=== PATIENT | female | born 1995 | race Caucasian/White ===

== ENCOUNTER 2024-04-09 11:00 | Inpatient (IN) | payer BC ==
[2024-04-09] MEDS ORDERED: Lidocaine 1% 50 ML MDV INJECT PRN (11:09)
[2024-04-09] MEDS ORDERED: Nalbuphine 10 MG/1 ML Vial IVPUSH PRN (11:09)
[2024-04-09] MEDS ORDERED: Ondansetron 4 MG/2 ML SDV IVPUSH PRN ×2 (11:09→21:22)
[2024-04-09] MEDS ORDERED: Sodium Chloride 0.9% 10 ML Syringe FLUSH PRN (11:09)
[2024-04-09] MEDS ORDERED: Oxytocin/0.9 % Sodium Chloride 30 UNIT/500 ML BAG IV SCH (11:15)
[2024-04-09 11:28] LABS: BASOPHILS PERCENT AUTO 0.3 % (0.0-1.0); EOSINOPHILS ABSOLUTE AUTO 0.1 K/mm3 (0.0-0.4); EOSINOPHILS PERCENT AUTO 1.4 % (0.0-6.0); HEMATOCRIT 38.3 % (37.0-47.0); IMMATURE GRAN ABSOLUTE AUTO 0.05 K/mm3 (0.00-0.05); IMMATURE GRAN PERCENT AUTO 0.5 % (0.0-0.4); LYMPHOCYTES PERCENT AUTO 21.3 % (24.0-44.0); MEAN CORPUSCULAR HEMOGLOBIN 31.4 pg (28.0-32.0); MEAN CORPUSCULAR HGB CONC 35.5 g/dl (32.0-36.0); MEAN CORPUSCULAR VOLUME 88.5 fl (83.0-99.0); MEAN PLATELET VOLUME 9.4 fl (9.4-12.3); MONOCYTES ABSOLUTE AUTO 0.5 K/mm3 (0.0-0.8); MONOCYTES PERCENT AUTO 5.9 % (0.0-8.0); NEUTROPHILS ABSOLUTE AUTO 6.5 K/mm3 (1.8-7.7); NEUTROPHILS PERCENT AUTO 70.6 % (41.0-71.0); PLATELET COUNT,PLT 295 K/mm3 (150-400); RED BLOOD CELL COUNT 4.33 M/mm3 (4.10-5.30); WHITE BLOOD CELL COUNT,WBC 9.19 K/mm3 (3.9-11.3)
[2024-04-09 11:30] LABS: HEMOGLOBIN 13.6 gm/dl (12.0-16.0)
[2024-04-09] MEDS: Lactated Ringers 1,000 ML IV SCH (12:28)
[2024-04-09] MEDS: Oxytocin/0.9 % Sodium Chloride 30 UNIT/500 ML BAG IV SCH (12:28)
[2024-04-09 12:39] LABS: CREATININE 0.6 mg/dL (0.55-1.02); EST CRCL DRUG DOSING (CG) 117.54 mL/min
[2024-04-09 13:04] LABS: CREATININE,URINE RAND 38.8 mg/dL (30.0-125.0); PROTEIN CREATININE RATIO,URINE 190.7 mg/g (0-149); PROTEIN,URINE RANDOM 7.4 mg/dL (0.0-11.8)
[2024-04-09] MEDS ORDERED: diphenhydrAMINE 50 MG/ML SDV IVPUSH PRN ×2 (15:31→21:22)
[2024-04-09] MEDS ORDERED: ePHEDrine 50 MG/ML SDV IVPUSH PRN ×2 (15:31→23:07)
[2024-04-09] MEDS: Bupivacaine/fentaNYL/NS 100 ML Bag EPIDUR PRN (15:39)
[2024-04-09] MEDS: fentaNYL 100 MCG/2 ML SDV EPIDUR PRN (15:40)
[2024-04-09] MEDS: Calcium Carbonate 500 MG Tab.Chew PO PRN (18:45)
[2024-04-09] MEDS ORDERED: fentaNYL 100 MCG/2 ML SDV ONE (20:01)
[2024-04-09] MEDS ORDERED: Ondansetron 4 MG/2 ML SDV ONE (20:01)
[2024-04-09] MEDS ORDERED: Lidocaine 2% with EPINEPHrine 1:200,000 20 ML SDV ONE (20:01)
[2024-04-09] MEDS ORDERED: Phenylephrine 1% 10 MG/ML SDV ONE (20:03)
[2024-04-09] MEDS: Citric Acid/Sodium Citrate Solution 30 ML Cup PO ONE (20:06)
[2024-04-09] MEDS: Azithromycin 500 MG in Sodium Chloride 0.9% 250 ML IV ONE (20:06)
[2024-04-09] MEDS: Metoclopramide 10 MG/2 ML SDV IVPUSH ONE (20:07)
[2024-04-09] MEDS ORDERED: ceFAZolin 2 GM Vial ONE (20:26)
[2024-04-09] MEDS ORDERED: Ketorolac 30 MG/ML SDV ONE (20:38)
[2024-04-09] MEDS ORDERED: Oxytocin 10 Units/1 ML SDV ONE (20:40)
[2024-04-09] MEDS ORDERED: Methylergonovine 0.2 MG/1 ML Amp ONE (20:44)
[2024-04-09] MEDS ORDERED: Morphine PF 10 MG/10 ML SDV ONE (20:59)
[2024-04-09] MEDS: Misoprostol 200 MCG Tab ONE (21:20)
[2024-04-09] MEDS ORDERED: Meperidine 50 MG/ML Vial IVPUSH PRN (21:22)
[2024-04-09] MEDS ORDERED: fentaNYL 100 MCG/2 ML SDV IVPUSH PRN (21:22)
[2024-04-09] MEDS ORDERED: Ondansetron 4 MG/2 ML SDV IV PRN (23:07)
[2024-04-09] MEDS ORDERED: Naloxone 0.4 MG/ML SDV IVPUSH PRN (23:07)
[2024-04-09] MEDS ORDERED: Docusate Sodium 100 MG Cap PO PRN (23:07)
[2024-04-09] MEDS ORDERED: Acetaminophen/oxyCODONE 325-5 MG Tab PO PRN (23:07)
[2024-04-09] MEDS: Dextrose 5%-Lactated Ringers 1,000 ML IV SCH (23:22)
[2024-04-10] MEDS: Ketorolac 30 MG/ML SDV IVPUSH SCH (02:58)
[2024-04-10] MEDS: Lactated Ringers 500 ML IV ONE (07:15)
[2024-04-10 11:20] LABS: HEMATOCRIT 29.5 % (37.0-47.0); HEMOGLOBIN 10.4 gm/dl (12.0-16.0); MEAN CORPUSCULAR HEMOGLOBIN 31.4 pg (28.0-32.0); MEAN CORPUSCULAR HGB CONC 35.3 g/dl (32.0-36.0); MEAN CORPUSCULAR VOLUME 89.1 fl (83.0-99.0); MEAN PLATELET VOLUME 9.3 fl (9.4-12.3); PLATELET COUNT,PLT 246 K/mm3 (150-400); RED BLOOD CELL COUNT 3.31 M/mm3 (4.10-5.30); WHITE BLOOD CELL COUNT,WBC 11.51 K/mm3 (3.9-11.3)
[2024-04-10] MEDS: ceFAZolin 2 GM in Sodium Chloride 0.9% 50 ML IV ONE (11:30)
[2024-04-10] MEDS: Sodium Chloride 0.9% 10 ML Syringe FLUSH SCH (11:30)
[2024-04-10 12:24] LABS: T4 FREE 0.65 ng/dL (0.76-1.46); TSH 2.334 uIU/mL (0.358-3.74)
[2024-04-10 13:01] LABS: A/G RATIO 0.7 (1-2); ALBUMIN 2.1 g/dl (3.4-5.0); ANION GAP 12.3 (5-15); BILIRUBIN TOTAL 0.4 mg/dL (0.2-1.0); CALCIUM 8.9 mg/dL (8.5-10.1); CREATININE 0.6 mg/dL (0.55-1.02); EST CRCL DRUG DOSING (CG) 117.54 mL/min; POTASSIUM,K 4.3 mEq/L (3.5-5.1); PROTEIN TOTAL,TP 5.3 g/dl (6.4-8.2)
[2024-04-10] MEDS: Iopamidol 612 MG/ML 100 ML Bottle IVPUSH ONE (13:39)
[2024-04-10] MEDS: Sodium Chloride 0.9% 100 ML IV SCH (13:39)
[2024-04-10] MEDS: Sodium Chloride 0.9% 10 ML Syringe FLUSH ONE (13:39)
[2024-04-10] MEDS: Iopamidol 612 MG/ML 30 ML SDV IVPUSH ONE (13:40)
[2024-04-10] MEDS: Gentamicin 500 MG in Sodium Chloride 0.9% 100 ML IV STA ×2 (14:06→14:07)
[2024-04-10] MEDS: Clindamycin Phosphate in D5W 900 MG in Premix Bag 1 BAG IV SCH ×2 (15:14→15:25)
[2024-04-10] MEDS: Sodium Chloride 0.9% 500 ML IV ONE (15:48)
[2024-04-10] MEDS: Ibuprofen 600 MG Tab PO SCH (21:24)
[2024-04-11] MEDS: Acetaminophen/oxyCODONE 325-5 MG Tab PO PRN (00:36)
[2024-04-11 06:08] LABS: HEMATOCRIT 28.8 % (37.0-47.0); HEMOGLOBIN 10.1 gm/dl (12.0-16.0); MEAN CORPUSCULAR HEMOGLOBIN 31.3 pg (28.0-32.0); MEAN CORPUSCULAR HGB CONC 35.1 g/dl (32.0-36.0); MEAN CORPUSCULAR VOLUME 89.2 fl (83.0-99.0); MEAN PLATELET VOLUME 9.2 fl (9.4-12.3); PLATELET COUNT,PLT 231 K/mm3 (150-400); RED BLOOD CELL COUNT 3.23 M/mm3 (4.10-5.30); WHITE BLOOD CELL COUNT,WBC 11.47 K/mm3 (3.9-11.3)
[2024-04-11] MEDS: Gentamicin 500 MG in Sodium Chloride 0.9% 100 ML IV ONE (13:56)
[2024-04-11] MEDS: Magnesium Hydroxide 400 MG/5 ML Susp 30 ML Cup PO ONE (21:36)
[2024-04-12] MEDS: Ibuprofen 600 MG Tab PO SCH (10:46)
== END 2024-04-12 11:40 | disposition home or self-care (01) | DRG 540 ==
LOC: JD.OB 11:00 → OBSVTOIN 20:40 → JD.OB 20:40
PROVIDERS: ADMIT Obstetrics & Gynecology; ATTEND Obstetrics & Gynecology
PROC: 10D00Z1 Extraction of Products of Conception, Low, Open Approach (ICD-10-PCS; principal; 2024-04-09 20:05)
DX: O41.03X0 Oligohydramnios, third trimester, not applicable or unspecified (principal); Z3A.41 41 weeks gestation of pregnancy; Z37.0 Single live birth; O48.0 Post-term pregnancy; O99.214 Obesity complicating childbirth; O62.2 Other uterine inertia; O75.3 Other infection during labor
CPT/HCPCS: 01967; 01968; 36415; 51701; 51702; 59025; 74178; 74178-26; 80053; 82565; 82570; 83605; 84156; 84439; 84443; 84450; 84460; 85025; 85027; 86592; 86850; 86900; 86901; 87040; 94762; 99140; A9270-GY; C1758; J0456; J0690; J0736; J1580; J1885; J2210; J2274; J2371; J2405; J2590; J2765; J3010; J3490; J7040; J7050; J7120; J7121; J7999; Q9967